=== PATIENT | male | born 1990 | race Caucasian/White ===

== ENCOUNTER 2019-06-20 17:12 | Emergency (ER) | payer OTHER ==
[~2019-06-20] VITALS: Ht 175.3 cm; Wt 65.3 kg
--- NOTE | 2019-06-20 17:20 | NUR ---
"bibra with lapd for back spasms, denies any trauma" pt aaox4, -sob, nad noted, vss ,pending md burns
[2019-06-20] MEDS ORDERED: IV NS 0.9% 1,000 ML BAG IV ONE (18:00)
[2019-06-20 18:01] LABS: BASOPHILS # (AUTO) 0.1 /CMM (0.0-0.2); BASOPHILS % (AUTO) 0.7 % (0.0-2.0); HEMATOCRIT 46 % (39-51); HEMOGLOBIN 15.1 g/dL (13.5-17.5); LYMPHOCYTES # (AUTO) 1.9 /CMM (0.8-4.8); LYMPHOCYTES % (AUTO) 19.3 % (20.0-44.0); MEAN CORPUSCULAR HGB CONC 33 g/dl (31.0-36.0); MEAN CORPUSCULAR VOLUME 82 fL (80-96); MONOCYTES # (AUTO) 1.4 /CMM (0.1-1.30); MONOCYTES % (AUTO) 13.8 % (2.0-12.0); NEUTROPHILS # (AUTO) 6.5 /CMM (1.8-8.9); NEUTROPHILS % (AUTO) 65.2 % (43.0-81.0); PLATELET COUNT (AUTO) 385 /CMM (150-450); RED BLOOD CELL COUNT(AUTO) 5.56 MIL/uL (4.5-6.0); WHITE BLOOD COUNT (AUTO) 10.1 K/uL (4.3-11.0)
[2019-06-20 18:09] LABS: CALCIUM, SERUM 8.9 mg/dL (8.5-10.1); CARBON DIOXIDE 23 mmol/L (21-32); CHLORIDE 103 mmol/L (98-107); CREATININE 0.7 mg/dL (0.6-1.3); GLUCOSE 107 mg/dL (74-106); POTASSIUM 4.6 mmol/L (3.5-5.1); SODIUM SERUM 134 mmol/L (136-145); UREA NITROGEN, BLOOD 17 mg/dL (7-18)
[2019-06-20 18:23] LABS: ALANINE AMINOTRANSFERASE 26 U/L (12-78); ALBUMIN 3.6 g/dL (3.4-5.0); ALKALINE PHOSPHATASE 88 U/L (46-116); ASPARTATE AMINOTRANSFERASE 26 U/L (15-37); BILIRUBIN,TOTAL 0.2 mg/dL (0.2-1.0); LIPASE 354 U/L (73-393); TOTAL PROTEIN, SERUM 9.2 g/dL (6.4-8.2)
[2019-06-20] MEDS ORDERED: IOHEXOL-300 100 ML VIAL IV ONE (18:31)
--- NOTE | 2019-06-20 19:00 | NUR ---
pt with lap[employer] officers at bedside, pt has cuffs on both feet, and pt handcuffed to gurney. pt denies any pain discomfort to extremities, pt aaox4, -sob, nad noted.
--- NOTE | 2019-06-20 19:25 | NUR ---
pt attempted to escape lapd custody, pt has both feet cuffed, pt was using urinal and attempted to escape through back door, lapd officers were able to restrain patient and brought back inside er. pt denies any pain at this time, -sob, no trauma noted, pt moved to bed 13 for safety, 1:1 sitter in er, lapd officers at [facility].
--- NOTE | 2019-06-20 20:18 | NUR ---
IV removed. Catheter intact and site benign. Pressure and 4x4 applied to site. No bleeding noted. Patient discharged to home in stable condition. Written and verbal after care instructions given. Patient verbalizes understanding of instruction.
[2019-06-20 20:19] VITALS: BP 119/72
== END 2019-06-20 20:20 ==
LOC: EDBD → ER 17:28
DX: M54.5 Low back pain (principal); R56.9 Unspecified convulsions; F10.20 Alcohol dependence, uncomplicated; Y90.9 Presence of alcohol in blood, level not specified; Z91.14 Patient's other noncompliance with medication regimen
CPT/HCPCS: 36415; 71045; 72129; 72132; 80048; 80076; 83690; 84484; 85025; 93005; 99284; Q9967

== ENCOUNTER 2019-07-05 16:39 | Emergency (ER) | payer OTHER ==
[~2019-07-05] VITALS: Ht 167.6 cm; Wt 72.6 kg
[2019-07-05 16:42] VITALS: BP 131/79
[2019-07-05] MEDS ORDERED: CHLORDIAZEPOXIDE HCL 25 MG CAPSULE PO ONE (17:30)
[2019-07-05] MEDS ORDERED: CHLORDIAZEPOXIDE HCL 25 MG CAPSULE ONE (17:32)
== END 2019-07-05 17:38 ==
LOC: ER 16:41
DX: R56.9 Unspecified convulsions (principal); F13.239 Sedative, hypnotic or anxiolytic dependence with withdrawal, unspecified; F11.23 Opioid dependence with withdrawal; F41.9 Anxiety disorder, unspecified; F10.10 Alcohol abuse, uncomplicated; Y90.9 Presence of alcohol in blood, level not specified

== ENCOUNTER 2021-11-13 13:14 | Emergency (ER) | payer OTHER ==
[~2021-11-13] VITALS: Ht 175.3 cm; Wt 72.6 kg
[2021-11-13 13:37] VITALS: BP 123/81
--- NOTE | 2021-11-13 14:50 | NUR ---
AT BEDSIDE FOR EVAL.
--- NOTE | 2021-11-13 15:06 | NUR ---
Patient discharged to home in stable condition. Written and verbal after care instructions given. Patient verbalizes understanding of instruction.
== END 2021-11-13 15:07 | disposition home or self-care (01) ==
LOC: ER 13:22
DX: S00.81XA Abrasion of other part of head, initial encounter (principal); X58.XXXA Exposure to other specified factors, initial encounter; Y93.89 Activity, other specified; Y92.89 Other specified places as the place of occurrence of the external cause; Y99.8 Other external cause status